=== PATIENT | male | born 1945 | race Caucasian/White ===

== ENCOUNTER 2018-03-27 08:43 | Inpatient (IN) | payer MEDICARE, OTHER ==
[2018-03-27] MEDS: IPRATROPIUM (NEB) 0.5 MG/2.5 ML AMP INH (08:55)
[2018-03-27] MEDS: ALBUTEROL 0.5% (NEB) 2.5 MG/0.5 ML AMP INH (08:55)
[2018-03-27] MEDS: CEFEPIME 1GM/50 ML (PMX) 50 ML IVPB (08:56)
[2018-03-27] MEDS: ACETAMINOPHEN 325 MG TAB PO (08:56)
[2018-03-27] MEDS: METHYLPREDNISOLONE 125 MG INJ IV (08:56)
[2018-03-27] MEDS: SODIUM CHLORIDE 0.9% 1L BAG IV* (08:56)
[2018-03-27 08:58] LABS: HEMOGLOBIN 13.3 g/dl (14.0-18.0); MEAN CORPUSCULAR HEMOGLOBIN 32.7 pg (29.0-33.0); MEAN CORPUSCULAR HGB CONC 34.1 g/dl (32.0-37.0); MEAN CORPUSCULAR VOLUME 95.8 fl (82.0-101.0); MEAN PLATELET VOLUME 9.4 fl (7.4-10.4); PLATELET COUNT 131 10^3/UL (140-415); POSITIVE DIFF @See below; RED BLOOD COUNT 4.07 10^6/ul (4.70-6.10); RED CELL DISTRIBUTION WIDTH 13.7 % (11.5-14.5)
[2018-03-27 08:58] LABS: WHITE BLOOD COUNT 4.8 10^3/ul (4.8-10.8)
[2018-03-27 09:07] LABS: ADD MAN DIFF? YES
[2018-03-27 09:20] LABS: INR 1.23; PROTIME 15.7 Sec (11.9-14.9); PT RATIO 1.2
[2018-03-27 09:21] LABS: PARTIAL THROMBOPLASTIN TIME 38.8 Sec (25.0-35.0)
[2018-03-27 09:26] LABS: ALANINE AMINOTRANSFERASE 79 IU/L (13-69); ALBUMIN 4.1 g/dl (3.3-4.9); ALKALINE PHOSPHATASE 74 IU/L (42-121); ANION GAP 14 (8-16); ASPARTATE AMINO TRANSFERASE 79 IU/L (15-46); BILIRUBIN,INDIRECT 0.9 mg/dl (0-1.1); BILIRUBIN,TOTAL 0.9 mg/dl (0.2-1.3); BLOOD UREA NITROGEN 29 mg/dl (7-20); CARBON DIOXIDE 24 mmol/L (21-31); CHLORIDE 107 mmol/L (97-110); CREATININE 1.23 mg/dl (0.61-1.24); GLUCOSE 174 mg/dl (70-220); LIPASE 32 U/L (23-300); POTASSIUM 3.6 mmol/L (3.5-5.1); SODIUM 141 mmol/L (135-144); TOTAL PROTEIN 7.8 g/dl (6.1-8.1)
[2018-03-27 09:28] LABS: BAND NEUTROPHILS #M 1.6 10^3/ul (0.0-0.6); BAND NEUTROPHILS % (M) 35 % (0-4); LYMPHOCYTES #M 0.4 10^3/ul (0.8-2.9); LYMPHOCYTES % (M) 9 % (15-51); METAMYELOCYTES #M 0.1 10^3/ul (0.0-0.0); METAMYELOCYTES %M 4 % (0-0); MONOCYTE #M 0.6 10^3/ul (0.3-0.9); MONOCYTES % (M) 13 % (0-11); MYELOCYTES % (M) 2 % (0-0); PLATELET ESTIMATE DECREASED; POIKILOCYTOSIS 1+ (0-0); POLYCHROMASIA 1+ (0-0); SEG NEUT #M 1.9 10^3/ul (1.6-7.5); SEGMENTED NEUTROPHILS (M) % 37 % (39-77)
[2018-03-27] MEDS ORDERED: ACETAMINOPHEN 325 MG SUPP PR (09:30)
[2018-03-27 09:40] LABS: TROPONIN-I 0.126 ng/ml (0.000-0.120)
[2018-03-27 09:47] LABS: LACTIC ACID 2.8 mmol/L (0.5-2.0)
[2018-03-27 09:49] LABS: ADD UMIC YES; UR AMORPHOUS CRYSTAL FEW /HPF (NONE SEEN); UR ASCORBIC ACID 40 mg/dL (NEGATIVE); UR BILIRUBIN (Dip) NEGATIVE (NEGATIVE); UR BLOOD (Dip) NEGATIVE (NEGATIVE); UR CLARITY SLIGHTLY CLOUDY (CLEAR); UR COLOR YELLOW (YELLOW); UR GLUCOSE (Dip) NEGATIVE (NEGATIVE); UR KETONES (Dip) NEGATIVE (NEGATIVE); UR LEUKOCYTE ESTERASE (Dip) NEGATIVE Leu/ul (NEGATIVE); UR MUCUS FEW /HPF (NONE SEEN); UR NITRITE (Dip) NEGATIVE (NEGATIVE); UR RBC 2 /HPF (0-5); UR SPECIFIC GRAVITY (Dip) 1.017 (1.003-1.030); UR TOTAL PROTEIN (Dip) 1+ mg/dl (NEGATIVE); UR UROBILINOGEN (Dip) NEGATIVE (NEGATIVE); UR WBC 3 /HPF (0-5)
[2018-03-27] MEDS: LINEZOLID 600 MG/D5W (PMX) 300 ML IVPB ×2 (10:55→21:30)
[2018-03-27] MEDS ORDERED: ALBUTEROL 0.083% (NEB) 2.5 MG/3 ML AMP NEB (11:00)
[2018-03-27] MEDS ORDERED: NITROGLYCERIN (SL) 0.4 MG TAB SL (11:00)
[2018-03-27] MEDS: ENOXAPARIN 80 MG/0.8 ML SYG SC ×2 (11:00→21:31)
[2018-03-27 11:13] LABS: CREATINE KINASE 143 IU/L (23-200)
[2018-03-27 11:18] LABS: LACTIC ACID 3.5 mmol/L (0.5-2.0)
[2018-03-27 11:26] LABS: CK INDEX 0.3; CK-MB 0.39 ng/ml (0.0-2.4)
[2018-03-27 11:31] LABS: TROPONIN-I 0.132 ng/ml (0.000-0.120)
[2018-03-27] MEDS ORDERED: HYDROCODONE/APAP (5/325) TAB PO (12:00)
[2018-03-27] MEDS ORDERED: LACTOSE FREE FOOD PO (13:00)
[2018-03-27] MEDS: FISH OIL 1,000 MG CAP PO ×3 (13:00→21:00)
[2018-03-27 13:16] LABS: LACTIC ACID 3.5 mmol/L (0.5-2.0)
[2018-03-27 13:40] LABS: SODIUM,URINE RANDOM 61 mmol/L (30-90)
[2018-03-27 13:40] LABS: CREATININE,URINE RANDOM 111.29 mg/dl (20-370)
[2018-03-27] MEDS: carBAMAZepine (XR) 100 MG TABSR PO ×2 (13:56→14:09)
[2018-03-27] MEDS: SOD CHLORIDE 0.9% 1,000 ML IV (13:56)
[2018-03-27] MEDS ORDERED: NORepinephrine 8MG/250 ML (PMX 250 ML IV (15:30)
[2018-03-27 16:26] LABS: LACTIC ACID 4.2 mmol/L (0.5-2.0)
[2018-03-27] MEDS: LIDOCAINE 1% (MPF) 5 ML VIAL SC (17:40)
[2018-03-27] MEDS: SOD CHLORIDE 0.9% 100 ML (18:00)
[2018-03-27 18:48] LABS: LACTIC ACID 2.6 mmol/L (0.5-2.0)
[2018-03-27] MEDS: POTASSIUM CHLORIDE 100 ML IVPB (20:15)
[2018-03-27] MEDS: CALCIUM CARBONATE 500 MG CHEW TAB PO (21:00)
[2018-03-27] MEDS: TERAZOSIN 5 MG CAP PO (21:00)
[2018-03-27] MEDS: ATORVASTATIN 40 MG TAB PO (21:00)
[2018-03-27] MEDS ORDERED: NON-FORMULARY/PATIENT OWN MED (Amino Acids/Protein Hydrolys (Pro-Stat Liquid) 30 ML) PO (21:00)
[2018-03-27] MEDS: DOCUSATE SODIUM 100 MG CAP PO (21:31)
[2018-03-27 21:42] LABS: LACTIC ACID 2.2 mmol/L (0.5-2.0)
[2018-03-27] MEDS: carBAMAZepine (XR) 200 MG TABSR PO (22:00)
[2018-03-28] MEDS: POTASSIUM CHLORIDE 100 ML IVPB (01:00)
[2018-03-28] MEDS: carBAMAZepine (XR) 200 MG TABSR PO (06:00)
[2018-03-28] MEDS: SOD CHLORIDE 0.9% 1,000 ML IV (06:01)
[2018-03-28 06:43] LABS: HEMATOCRIT 34.3 % (42.0-52.0); HEMOGLOBIN 11.9 g/dl (14.0-18.0); MEAN CORPUSCULAR HEMOGLOBIN 33.2 pg (29.0-33.0); MEAN CORPUSCULAR HGB CONC 34.7 g/dl (32.0-37.0); MEAN CORPUSCULAR VOLUME 95.8 fl (82.0-101.0); MEAN PLATELET VOLUME 10.9 fl (7.4-10.4); PLATELET COUNT 104 10^3/UL (140-415); POSITIVE DIFF @See below; RED BLOOD COUNT 3.58 10^6/ul (4.70-6.10); RED CELL DISTRIBUTION WIDTH 13.6 % (11.5-14.5)
[2018-03-28 06:43] LABS: WHITE BLOOD COUNT 5.3 10^3/ul (4.8-10.8)
[2018-03-28 06:47] LABS: ADD MAN DIFF? YES
[2018-03-28 07:20] LABS: ANION GAP 9 (8-16); BLOOD UREA NITROGEN 26 mg/dl (7-20); CALCIUM 7.9 mg/dl (8.4-10.2); CARBON DIOXIDE 22 mmol/L (21-31); CHLORIDE 115 mmol/L (97-110); CREATININE 0.78 mg/dl (0.61-1.24); GLUCOSE 167 mg/dl (70-220); PHOSPHORUS 1.9 mg/dl (2.5-4.9); POTASSIUM 4.7 mmol/L (3.5-5.1); SODIUM 141 mmol/L (135-144)
[2018-03-28] MEDS ORDERED: FUROSEMIDE 40 MG TAB PO (09:00)
[2018-03-28] MEDS: CALCIUM CARBONATE 500 MG CHEW TAB PO ×2 (09:10→21:53)
[2018-03-28] MEDS: ALLOPURINOL 300 MG TAB PO (09:10)
[2018-03-28] MEDS: ASCORBIC ACID 500 MG TAB PO (09:10)
[2018-03-28] MEDS: FISH OIL 1,000 MG CAP PO ×3 (09:10→21:53)
[2018-03-28] MEDS: ASPIRIN 81 MG TAB PO (09:10)
[2018-03-28] MEDS: LOSARTAN 25 MG TAB PO (09:11)
[2018-03-28] MEDS: MULTIVITAMINS THERAPEUTIC TAB PO (09:11)
[2018-03-28] MEDS: DOCUSATE SODIUM 100 MG CAP PO ×2 (09:12→21:53)
[2018-03-28] MEDS: ENOXAPARIN 80 MG/0.8 ML SYG SC ×2 (09:13→22:08)
[2018-03-28 09:29] LABS: BAND NEUTROPHILS % (M) 39 % (0-4); LYMPHOCYTES #M 0.9 10^3/ul (0.8-2.9); LYMPHOCYTES % (M) 17 % (15-51); METAMYELOCYTES #M 0.1 10^3/ul (0.0-0.0); METAMYELOCYTES %M 2 % (0-0); MONOCYTE #M 0.3 10^3/ul (0.3-0.9); MONOCYTES % (M) 6 % (0-11); PLATELET ESTIMATE DECREASED; POIKILOCYTOSIS 3+ (0-0); POLYCHROMASIA 1+ (0-0); REACTIVE LYMPHOCYTES #M 0.1 10^3/ul (0.0-0.0); REACTIVE LYMPHOCYTES% (M) 3 % (0-0); SEG NEUT #M 1.9 10^3/ul (1.6-7.5); SEGMENTED NEUTROPHILS (M) % 33 % (39-77); SMUDGE%M 4 % (0-0)
[2018-03-28] MEDS: ERTAPENEM SODIUM 1 GM in SOD CHLORIDE 0.9% 100 ML IVPB (11:27)
[2018-03-28] MEDS: LINEZOLID 600 MG/D5W (PMX) 300 ML IVPB ×2 (11:27→21:55)
[2018-03-28] MEDS: NEUTRA-PHOS 250 MG PACKET PO (11:30)
[2018-03-28 11:38] LABS: LACTIC ACID 1.6 mmol/L (0.5-2.0)
[2018-03-28 11:44] LABS: INR 1.67; PT RATIO 1.6
[2018-03-28] MEDS: WARFARIN 10 MG TAB PO (16:53)
[2018-03-28] MEDS: ATORVASTATIN 40 MG TAB PO (21:53)
[2018-03-28] MEDS: carBAMAZepine (XR) 100 MG TABSR PO (21:54)
[2018-03-28] MEDS: TERAZOSIN 5 MG CAP PO (21:54)
[2018-03-29] MEDS: SOD CHLORIDE 0.9% 1,000 ML IV (03:00)
[2018-03-29 06:56] LABS: ADD MAN DIFF? NO
[2018-03-29] MEDS: carBAMAZepine (XR) 100 MG TABSR PO ×3 (07:00→21:27)
[2018-03-29 07:07] LABS: ABNORMAL IP MESSAGE 1; BASOPHILS % 0.2 % (0.0-2.0); HEMATOCRIT 34.4 % (42.0-52.0); HEMOGLOBIN 11.9 g/dl (14.0-18.0); LYMPHOCYTES # 0.6 10^3/ul (0.8-2.9); MEAN CORPUSCULAR HEMOGLOBIN 33.2 pg (29.0-33.0); MEAN CORPUSCULAR HGB CONC 34.6 g/dl (32.0-37.0); MEAN CORPUSCULAR VOLUME 96.1 fl (82.0-101.0); MEAN PLATELET VOLUME 11.1 fl (7.4-10.4); MONOCYTE # 0.3 10^3/ul (0.3-0.9); MONOCYTES % 5.7 % (0.0-11.0); NEUTROPHIL # 3.8 10^3/ul (1.6-7.5); NEUTROPHILS % 81.7 % (39.0-77.0); PLATELET COUNT 127 10^3/UL (140-415); POSITIVE DIFF @See below; RED BLOOD COUNT 3.58 10^6/ul (4.70-6.10); RED CELL DISTRIBUTION WIDTH 13.5 % (11.5-14.5)
[2018-03-29 07:07] LABS: WHITE BLOOD COUNT 4.6 10^3/ul (4.8-10.8)
[2018-03-29 07:21] LABS: INR 1.64; PROTIME 19.8 Sec (11.9-14.9); PT RATIO 1.5
[2018-03-29 07:27] LABS: ANION GAP 11 (8-16); BLOOD UREA NITROGEN 21 mg/dl (7-20); CALCIUM 8.4 mg/dl (8.4-10.2); CARBON DIOXIDE 24 mmol/L (21-31); CHLORIDE 109 mmol/L (97-110); GLUCOSE 129 mg/dl (70-220); MAGNESIUM 1.9 mg/dl (1.7-2.5); PHOSPHORUS 2.2 mg/dl (2.5-4.9); POTASSIUM 3.9 mmol/L (3.5-5.1); SODIUM 140 mmol/L (135-144)
[2018-03-29 07:39] LABS: B-TYPE NATRIURETIC PEPTIDE 10700 PG/ML (0-125)
[2018-03-29] MEDS: ALLOPURINOL 300 MG TAB PO (09:09)
[2018-03-29] MEDS: DOCUSATE SODIUM 100 MG CAP PO ×2 (09:09→21:26)
[2018-03-29] MEDS: FISH OIL 1,000 MG CAP PO ×3 (09:09→21:28)
[2018-03-29] MEDS: ASPIRIN 81 MG TAB PO (09:10)
[2018-03-29] MEDS: CALCIUM CARBONATE 500 MG CHEW TAB PO ×2 (09:10→21:27)
[2018-03-29] MEDS: LOSARTAN 25 MG TAB PO (09:10)
[2018-03-29] MEDS: ASCORBIC ACID 500 MG TAB PO (09:10)
[2018-03-29] MEDS: MULTIVITAMINS THERAPEUTIC TAB PO (09:10)
[2018-03-29] MEDS: ENOXAPARIN 80 MG/0.8 ML SYG SC ×2 (09:11→21:35)
[2018-03-29] MEDS: ERTAPENEM SODIUM 1 GM in SOD CHLORIDE 0.9% 100 ML IVPB (09:12)
[2018-03-29] MEDS: LINEZOLID 600 MG/D5W (PMX) 300 ML IVPB ×2 (10:01→21:28)
[2018-03-29] MEDS: NEUTRA-PHOS 250 MG PACKET PO (12:15)
[2018-03-29] MEDS: WARFARIN 10 MG TAB PO (17:35)
[2018-03-29] MEDS: TERAZOSIN 5 MG CAP PO (21:26)
[2018-03-29] MEDS: ATORVASTATIN 40 MG TAB PO (21:26)
[2018-03-30] MEDS: carBAMAZepine (XR) 100 MG TABSR PO ×3 (06:39→23:39)
[2018-03-30 07:29] LABS: ADD MAN DIFF? NO
[2018-03-30 07:37] LABS: BASOPHILS % 0.2 % (0.0-2.0); EOSINOPHILS # 0.1 10^3/ul (0.0-0.5); EOSINOPHILS % 3.2 % (0.0-7.0); HEMATOCRIT 30.7 % (42.0-52.0); HEMOGLOBIN 10.5 g/dl (14.0-18.0); LYMPHOCYTES # 0.9 10^3/ul (0.8-2.9); LYMPHOCYTES % 21.7 % (15.0-51.0); MEAN CORPUSCULAR HEMOGLOBIN 32.5 pg (29.0-33.0); MEAN CORPUSCULAR HGB CONC 34.2 g/dl (32.0-37.0); MEAN PLATELET VOLUME 10.7 fl (7.4-10.4); MONOCYTE # 0.3 10^3/ul (0.3-0.9); MONOCYTES % 7.1 % (0.0-11.0); NEUTROPHIL # 2.8 10^3/ul (1.6-7.5); NEUTROPHILS % 67.3 % (39.0-77.0); PLATELET COUNT 137 10^3/UL (140-415); POSITIVE DIFF @See below; RED BLOOD COUNT 3.23 10^6/ul (4.70-6.10); RED CELL DISTRIBUTION WIDTH 13.8 % (11.5-14.5)
[2018-03-30 07:37] LABS: WHITE BLOOD COUNT 4.1 10^3/ul (4.8-10.8)
[2018-03-30 07:52] LABS: PROTIME 25.9 Sec (11.9-14.9)
[2018-03-30 08:02] LABS: ANION GAP 11 (8-16); BLOOD UREA NITROGEN 15 mg/dl (7-20); CARBON DIOXIDE 24 mmol/L (21-31); CHLORIDE 106 mmol/L (97-110); CREATININE 0.76 mg/dl (0.61-1.24); GLUCOSE 117 mg/dl (70-220); MAGNESIUM 1.9 mg/dl (1.7-2.5); PHOSPHORUS 2.6 mg/dl (2.5-4.9); POTASSIUM 3.5 mmol/L (3.5-5.1); SODIUM 137 mmol/L (135-144)
[2018-03-30] MEDS: ASCORBIC ACID 500 MG TAB PO (09:10)
[2018-03-30] MEDS: DOCUSATE SODIUM 100 MG CAP PO ×2 (09:10→20:09)
[2018-03-30] MEDS: ALLOPURINOL 300 MG TAB PO (09:10)
[2018-03-30] MEDS: FISH OIL 1,000 MG CAP PO ×3 (09:10→20:07)
[2018-03-30] MEDS: ASPIRIN 81 MG TAB PO (09:10)
[2018-03-30] MEDS: CALCIUM CARBONATE 500 MG CHEW TAB PO ×2 (09:10→20:07)
[2018-03-30] MEDS: MULTIVITAMINS THERAPEUTIC TAB PO (09:10)
[2018-03-30] MEDS: LOSARTAN 25 MG TAB PO (09:11)
[2018-03-30] MEDS: LINEZOLID 600 MG/D5W (PMX) 300 ML IVPB (09:15)
[2018-03-30] MEDS: ERTAPENEM SODIUM 1 GM in SOD CHLORIDE 0.9% 100 ML IVPB (11:11)
[2018-03-30 16:22] LABS: CREATININE, RANDOM URINE 131 mg/dL (20-370); MICROALBUMIN 17.1 mg/dL; MICROALBUMIN/CREATININE RATIO 131 (<30)
[2018-03-30] MEDS: WARFARIN 2 MG TAB PO (18:41)
[2018-03-30] MEDS: WARFARIN 5 MG TAB PO (18:41)
[2018-03-30] MEDS: SPIRONOLACTONE 25 MG TAB PO (18:42)
[2018-03-30] MEDS: FUROSEMIDE 40 MG TAB PO (18:42)
[2018-03-30] MEDS: POTASSIUM CHLORIDE (SR) 20 MEQ TAB PO (18:42)
[2018-03-30] MEDS: MAGNESIUM SULFATE 2 GM/50 ML 50 ML IVPB (18:43)
[2018-03-30] MEDS: ATORVASTATIN 40 MG TAB PO (20:07)
[2018-03-30] MEDS: TERAZOSIN 5 MG CAP PO (20:08)
[2018-03-31] MEDS: carBAMAZepine (XR) 100 MG TABSR PO ×3 (05:21→21:16)
[2018-03-31 07:26] LABS: ADD MAN DIFF? NO
[2018-03-31 07:37] LABS: WHITE BLOOD COUNT 3.7 10^3/ul (4.8-10.8)
[2018-03-31 07:37] LABS: BASOPHILS % 0.3 % (0.0-2.0); EOSINOPHILS # 0.2 10^3/ul (0.0-0.5); EOSINOPHILS % 4.3 % (0.0-7.0); HEMATOCRIT 30.7 % (42.0-52.0); HEMOGLOBIN 10.2 g/dl (14.0-18.0); LYMPHOCYTES # 0.8 10^3/ul (0.8-2.9); LYMPHOCYTES % 22.6 % (15.0-51.0); MEAN CORPUSCULAR HEMOGLOBIN 31.9 pg (29.0-33.0); MEAN CORPUSCULAR HGB CONC 33.2 g/dl (32.0-37.0); MEAN CORPUSCULAR VOLUME 95.9 fl (82.0-101.0); MEAN PLATELET VOLUME 10.5 fl (7.4-10.4); MONOCYTE # 0.3 10^3/ul (0.3-0.9); MONOCYTES % 7.1 % (0.0-11.0); NEUTROPHIL # 2.4 10^3/ul (1.6-7.5); NEUTROPHILS % 65.2 % (39.0-77.0); PLATELET COUNT 135 10^3/UL (140-415); RED CELL DISTRIBUTION WIDTH 13.6 % (11.5-14.5)
[2018-03-31 07:52] LABS: INR 3.02; PROTIME 32.2 Sec (11.9-14.9); PT RATIO 2.5
[2018-03-31 07:55] LABS: ALANINE AMINOTRANSFERASE 236 IU/L (13-69); ALBUMIN/GLOBULIN RATIO 0.93; ALKALINE PHOSPHATASE 89 IU/L (42-121); ANION GAP 11 (8-16); ASPARTATE AMINO TRANSFERASE 155 IU/L (15-46); BILIRUBIN,INDIRECT 0.5 mg/dl (0-1.1); BILIRUBIN,TOTAL 0.5 mg/dl (0.2-1.3); BLOOD UREA NITROGEN 13 mg/dl (7-20); CARBON DIOXIDE 25 mmol/L (21-31); CHLORIDE 104 mmol/L (97-110); CREATININE 0.76 mg/dl (0.61-1.24); GLUCOSE 108 mg/dl (70-220); MAGNESIUM 2.3 mg/dl (1.7-2.5); POTASSIUM 3.7 mmol/L (3.5-5.1); SODIUM 136 mmol/L (135-144); TOTAL PROTEIN 6.2 g/dl (6.1-8.1)
[2018-03-31 07:59] LABS: B-TYPE NATRIURETIC PEPTIDE 4460 PG/ML (0-125)
[2018-03-31] MEDS: FISH OIL 1,000 MG CAP PO ×3 (09:37→21:16)
[2018-03-31] MEDS: ASPIRIN 81 MG TAB PO (09:37)
[2018-03-31] MEDS: ERTAPENEM SODIUM 1 GM in SOD CHLORIDE 0.9% 100 ML IVPB (09:37)
[2018-03-31] MEDS: CALCIUM CARBONATE 500 MG CHEW TAB PO ×2 (09:37→21:16)
[2018-03-31] MEDS: LOSARTAN 25 MG TAB PO (09:38)
[2018-03-31] MEDS: ALLOPURINOL 300 MG TAB PO (09:38)
[2018-03-31] MEDS: MULTIVITAMINS THERAPEUTIC TAB PO (09:38)
[2018-03-31] MEDS: SPIRONOLACTONE 25 MG TAB PO (09:38)
[2018-03-31] MEDS: FUROSEMIDE 40 MG TAB PO (09:38)
[2018-03-31] MEDS: DOCUSATE SODIUM 100 MG CAP PO ×2 (09:38→21:15)
[2018-03-31] MEDS: ASCORBIC ACID 500 MG TAB PO (09:38)
[2018-03-31 11:42] LABS: HAAIG REFLEX REFLEX FILED
[2018-03-31 12:29] LABS: HEPATITIS B SURFACE ANTIGEN NEGATIVE (NEGATIVE)
[2018-03-31 12:47] LABS: HEPATITIS B CORE ANTIBODY REACTIVE (NEGATIVE); HEPATITIS C VIRAL ANTIBODY NEGATIVE (NEGATIVE)
[2018-03-31] MEDS: WARFARIN 2 MG TAB PO (17:00)
[2018-03-31] MEDS: ATORVASTATIN 40 MG TAB PO (21:16)
[2018-03-31] MEDS: TERAZOSIN 5 MG CAP PO (21:16)
[2018-04-01] MEDS: carBAMAZepine (XR) 100 MG TABSR PO ×3 (05:55→21:24)
[2018-04-01] MEDS: DOCUSATE SODIUM 100 MG CAP PO ×2 (09:27→21:24)
[2018-04-01] MEDS: CALCIUM CARBONATE 500 MG CHEW TAB PO ×2 (09:27→21:26)
[2018-04-01] MEDS: ALLOPURINOL 300 MG TAB PO (09:27)
[2018-04-01] MEDS: ASPIRIN 81 MG TAB PO (09:27)
[2018-04-01] MEDS: ASCORBIC ACID 500 MG TAB PO (09:28)
[2018-04-01] MEDS: FUROSEMIDE 40 MG TAB PO (09:28)
[2018-04-01] MEDS: MULTIVITAMINS THERAPEUTIC TAB PO (09:28)
[2018-04-01] MEDS: LOSARTAN 25 MG TAB PO (09:28)
[2018-04-01] MEDS: ERTAPENEM SODIUM 1 GM in SOD CHLORIDE 0.9% 100 ML IVPB (09:29)
[2018-04-01] MEDS: FISH OIL 1,000 MG CAP PO ×3 (09:29→21:24)
[2018-04-01] MEDS: SPIRONOLACTONE 25 MG TAB PO (09:29)
[2018-04-01 09:32] LABS: ADD MAN DIFF? NO
[2018-04-01 09:42] LABS: BASOPHILS % 0.3 % (0.0-2.0); EOSINOPHILS # 0.1 10^3/ul (0.0-0.5); EOSINOPHILS % 3.7 % (0.0-7.0); HEMATOCRIT 35.8 % (42.0-52.0); HEMOGLOBIN 11.6 g/dl (14.0-18.0); LYMPHOCYTES # 0.9 10^3/ul (0.8-2.9); LYMPHOCYTES % 23.8 % (15.0-51.0); MEAN CORPUSCULAR HGB CONC 32.4 g/dl (32.0-37.0); MEAN CORPUSCULAR VOLUME 98.9 fl (82.0-101.0); MEAN PLATELET VOLUME 10.5 fl (7.4-10.4); MONOCYTE # 0.3 10^3/ul (0.3-0.9); MONOCYTES % 8.1 % (0.0-11.0); NEUTROPHIL # 2.4 10^3/ul (1.6-7.5); NEUTROPHILS % 63.1 % (39.0-77.0); PLATELET COUNT 161 10^3/UL (140-415); RED BLOOD COUNT 3.62 10^6/ul (4.70-6.10); RED CELL DISTRIBUTION WIDTH 13.5 % (11.5-14.5)
[2018-04-01 09:42] LABS: WHITE BLOOD COUNT 3.8 10^3/ul (4.8-10.8)
[2018-04-01 09:56] LABS: ALANINE AMINOTRANSFERASE 198 IU/L (13-69); ALBUMIN 3.2 g/dl (3.3-4.9); ALKALINE PHOSPHATASE 119 IU/L (42-121); ASPARTATE AMINO TRANSFERASE 113 IU/L (15-46); BILIRUBIN,INDIRECT 0.6 mg/dl (0-1.1); BILIRUBIN,TOTAL 0.6 mg/dl (0.2-1.3); TOTAL PROTEIN 6.6 g/dl (6.1-8.1)
[2018-04-01 10:54] LABS: ANION GAP 9 (8-16); BLOOD UREA NITROGEN 11 mg/dl (7-20); CALCIUM 8.4 mg/dl (8.4-10.2); CARBON DIOXIDE 28 mmol/L (21-31); CHLORIDE 102 mmol/L (97-110); CREATININE 0.71 mg/dl (0.61-1.24); GLUCOSE 105 mg/dl (70-220); MAGNESIUM 1.9 mg/dl (1.7-2.5); PHOSPHORUS 2.8 mg/dl (2.5-4.9); POTASSIUM 3.3 mmol/L (3.5-5.1); SODIUM 136 mmol/L (135-144)
[2018-04-01] MEDS: WARFARIN 2 MG TAB PO (17:18)
[2018-04-01] MEDS: ATORVASTATIN 40 MG TAB PO (21:24)
[2018-04-01] MEDS: TERAZOSIN 5 MG CAP PO (21:25)
[2018-04-02] MEDS: carBAMAZepine (XR) 100 MG TABSR PO (05:20)
[2018-04-02 06:45] LABS: WHITE BLOOD COUNT 4.7 10^3/ul (4.8-10.8)
[2018-04-02 06:45] LABS: HEMATOCRIT 31.1 % (42.0-52.0); HEMOGLOBIN 10.6 g/dl (14.0-18.0); MEAN CORPUSCULAR HEMOGLOBIN 32.3 pg (29.0-33.0); MEAN CORPUSCULAR HGB CONC 34.1 g/dl (32.0-37.0); MEAN CORPUSCULAR VOLUME 94.8 fl (82.0-101.0); MEAN PLATELET VOLUME 9.6 fl (7.4-10.4); PLATELET COUNT 184 10^3/UL (140-415); POSITIVE DIFF @See below; RED BLOOD COUNT 3.28 10^6/ul (4.70-6.10); RED CELL DISTRIBUTION WIDTH 13.5 % (11.5-14.5)
[2018-04-02 07:04] LABS: ALANINE AMINOTRANSFERASE 151 IU/L (13-69); ALBUMIN 2.7 g/dl (3.3-4.9); ALKALINE PHOSPHATASE 124 IU/L (42-121); ASPARTATE AMINO TRANSFERASE 77 IU/L (15-46); BILIRUBIN,INDIRECT 0.4 mg/dl (0-1.1); BILIRUBIN,TOTAL 0.4 mg/dl (0.2-1.3); TOTAL PROTEIN 5.7 g/dl (6.1-8.1)
[2018-04-02 07:08] LABS: INR 2.03; PROTIME 23.4 Sec (11.9-14.9); PT RATIO 1.8
[2018-04-02 07:10] LABS: ADD MAN DIFF? YES
[2018-04-02 07:12] LABS: ANION GAP 8 (8-16); BLOOD UREA NITROGEN 10 mg/dl (7-20); CALCIUM 8.1 mg/dl (8.4-10.2); CARBON DIOXIDE 32 mmol/L (21-31); CHLORIDE 103 mmol/L (97-110); CREATININE 0.65 mg/dl (0.61-1.24); GLUCOSE 113 mg/dl (70-220); MAGNESIUM 1.8 mg/dl (1.7-2.5); PHOSPHORUS 2.6 mg/dl (2.5-4.9); POTASSIUM 3.3 mmol/L (3.5-5.1); SODIUM 140 mmol/L (135-144)
[2018-04-02] MEDS ORDERED: POTASSIUM CHLORIDE (SR) 20 MEQ TAB PO ×2 (08:12→08:32)
[2018-04-02 08:57] LABS: BAND NEUTROPHILS % (M) 2 % (0-4); EOSINOPHILS % (M) 6 % (0-7); GIANT THROMBO% (M) 1 % (0-0); LYMPHOCYTES #M 0.3 10^3/ul (0.8-2.9); LYMPHOCYTES % (M) 8 % (15-51); MONOCYTE #M 0.3 10^3/ul (0.3-0.9); MONOCYTES % (M) 8 % (0-11); PLATELET ESTIMATE NORMAL; POIKILOCYTOSIS 1+ (0-0); POLYCHROMASIA 1+ (0-0); REACTIVE LYMPHOCYTES #M 0.3 10^3/ul (0.0-0.0); REACTIVE LYMPHOCYTES% (M) 7 % (0-0); SEG NEUT #M 3.2 10^3/ul (1.6-7.5); SEGMENTED NEUTROPHILS (M) % 69 % (39-77); SMUDGE%M 9 % (0-0)
[2018-04-02] MEDS: CALCIUM CARBONATE 500 MG CHEW TAB PO (09:00)
[2018-04-02] MEDS: MULTIVITAMINS THERAPEUTIC TAB PO (09:01)
[2018-04-02] MEDS: DOCUSATE SODIUM 100 MG CAP PO (09:01)
[2018-04-02] MEDS: ASCORBIC ACID 500 MG TAB PO (09:03)
[2018-04-02] MEDS: ALLOPURINOL 300 MG TAB PO (09:03)
[2018-04-02] MEDS: FISH OIL 1,000 MG CAP PO (09:04)
[2018-04-02] MEDS: LOSARTAN 50 MG TAB PO (09:04)
[2018-04-02] MEDS: SPIRONOLACTONE 25 MG TAB PO (09:04)
[2018-04-02] MEDS: ASPIRIN 81 MG TAB PO (09:05)
[2018-04-02] MEDS: FUROSEMIDE 40 MG TAB PO (09:05)
[2018-04-02] MEDS: MAGNESIUM SULFATE 2 GM/50 ML 50 ML IVPB (09:06)
[2018-04-02] MEDS: POTASSIUM CHLORIDE (SR) 20 MEQ TAB PO (09:06)
[2018-04-02] MEDS: ERTAPENEM SODIUM 1 GM in SOD CHLORIDE 0.9% 100 ML IVPB (09:07)
[2018-04-02] MEDS ORDERED: WARFARIN 5 MG TAB PO (17:00)
[2018-04-02] MEDS ORDERED: WARFARIN 2 MG TAB PO ×2 (17:00)
== END 2018-04-02 12:30 | DRG 871 ==
LOC: MS4 22:27 → E/R 08:43 → MS4 09:38
PROVIDERS: Internal Medicine
PROC: 02HV33Z Insertion of Infusion Device into Superior Vena Cava, Percutaneous Approach (ICD-10-PCS; principal; 2018-03-27)
DX: A41.9 Sepsis, unspecified organism (principal); R65.21 Severe sepsis with septic shock; J18.9 Pneumonia, unspecified organism; J96.01 Acute respiratory failure with hypoxia; G92 Toxic encephalopathy; E87.2 Acidosis; N17.9 Acute kidney failure, unspecified; I50.22 Chronic systolic (congestive) heart failure; D61.818 Other pancytopenia; I42.9 Cardiomyopathy, unspecified; G40.909 Epilepsy, unspecified, not intractable, without status epilepticus; F03.90 Unspecified dementia, unspecified severity, without behavioral disturbance, psychotic disturbance, mood disturbance, and anxiety; E78.5 Hyperlipidemia, unspecified; I25.10 Atherosclerotic heart disease of native coronary artery without angina pectoris; M10.9 Gout, unspecified; E87.6 Hypokalemia; I11.0 Hypertensive heart disease with heart failure; I25.2 Old myocardial infarction; I73.9 Peripheral vascular disease, unspecified; Z95.1 Presence of aortocoronary bypass graft; Z95.2 Presence of prosthetic heart valve
CPT/HCPCS: 36415; 36569; 71045; 76705; 76937; 80048; 80053; 80076; 81001; 81003; 82043; 82550; 82553; 83605; 83690; 83735; 83880; 84100; 84155; 84300; 84484; 85025; 85610; 85730; 86704; 86709; 86803; 87040; 87070; 87081; 87086; 87340; 87400; 89220; 92610; 93005; 93306; 94644; 96365; 96375; 97161; 99291-25